=== PATIENT | male | born 1985 | race Caucasian/White ===

== ENCOUNTER → 2023-06-08 19:02 | Outpatient (CLI) | payer OTHER, SELFPAY ==
--- NOTE | 2023-06-08 19:04 | DI.MRI.S_ITS ---
PROCEDURE: MR CERVICAL SPINE WO CON INDICATIONS: Cervicalgia TECHNIQUE: Noncontrast sagittal T1 spin echo and T2 fast spin echo, sagittal STIR, foraminal oblique sagittal T2 fast spin echo, and axial gradient echo or T2 fast spin echo through the cervical spine. COMPARISON: None. FINDINGS: Image quality: Excellent. Alignment and Curvature: There is normal bony alignment. Bone Marrow: Marrow demonstrates normal overall signal. Spinal Cord: Visualized spinal cord has normal size and signal. No cerebellar tonsillar herniation. Paraspinous Soft Tissues: No paravertebral masses. Prevertebral soft tissues are normal in thickness. C2-C3: Normal appearance. C3-C4: Disc bulge. Bilateral uncovertebral joint hypertrophy. Bilateral moderate to severe foraminal narrowing with a degree of bilateral C4 nerve root impingement. C4-C5: Prominent left facet hypertrophy. Disc bulge. No canal stenosis. Mild bilateral uncovertebral joint hypertrophy. Moderate to severe bilateral foraminal narrowing with a degree of bilateral foraminal C5 nerve root impingement. C5-C6: Diffuse posterior disc plus osteophyte. AP diameter of the canal is 11.3 mm. There is bilateral uncovertebral joint hypertrophy. There is severe bilateral foraminal narrowing with a degree of bilateral foraminal C6 nerve root impingement. C6-C7: There is a mild central posterior disc extrusion which indents on the ventral cord narrowing the AP diameter of the canal to 8.8 mm. There is an associated extruded free disc fragment, which is high signal, indicating acuity, obliterating the right C7 nerve root in the right lateral recess, measuring 1.0 x 0.9 x 0.6 cm. There is [id number] right foraminal narrowing. There is left uncovertebral joint hypertrophy with mild to moderate left foraminal narrowing. C7-T1: Normal appearance. IMPRESSION: 1. The most significant findings are at C6-C7. There is central posterior disc extrusion indenting on the ventral cord resulting in moderate canal stenosis. There is an associated large acute free extruded disc fragment in the right lateral recess obliterating the right C7 nerve root. 2. Diffuse spondylitic change with multilevel significant foraminal narrowing. Findings include bilateral moderate to severe foraminal narrowing at C3-C4 and C4-C5. There is severe bilateral foraminal narrowing at C5-C6. There is bilateral foraminal nerve root impingement at these levels. Dictated by: Renny Marques M.D. on 06/11/2023 at 8:08 Approved by: Renny Marques M.D. on 06/11/2023 at 8:16
== END ==
DX: M50.223 Other cervical disc displacement at C6-C7 level (principal); M48.02 Spinal stenosis, cervical region
CPT/HCPCS: 72141

== ENCOUNTER → 2023-08-23 07:16 | Outpatient (CLI) | payer OTHER, SELFPAY ==
--- NOTE | 2023-08-23 | DI.MRI.S_ITS ---
PROCEDURE: MR CERVICAL SPINE WO CON INDICATIONS: Other spondylosis with radiculopathy, cervical reg TECHNIQUE: Noncontrast sagittal T1 spin echo and T2 fast spin echo, sagittal STIR, foraminal oblique sagittal T2 fast spin echo, and axial gradient echo or T2 fast spin echo through the cervical spine. COMPARISON: [facility], MR, MR CERVICAL SPINE WO CON, 06/08/2023, 19:29. FINDINGS: Image quality: Excellent. Alignment and Curvature: Straightening of the normal cervical lordosis. Bone Marrow: Marrow demonstrates normal overall signal. Spinal Cord: Visualized spinal cord has normal size and signal. No cerebellar tonsillar herniation. Paraspinous Soft Tissues: No paravertebral masses. Prevertebral soft tissues are normal in thickness. C2-C3: Normal appearance. C3-C4: Disc desiccation and posterior disc osteophyte complex. No central canal stenosis. Facet and uncovertebral arthropathy. Moderate to severe bilateral neural foraminal stenosis. C4-C5: Disc desiccation. No central canal stenosis. Facet and uncovertebral arthropathy. Stable moderate to severe bilateral neural foraminal stenosis. C5-C6: Disc desiccation. No central canal stenosis. Uncovertebral and facet arthropathy. Stable severe bilateral neural foraminal stenosis. C6-C7: Disc desiccation. Posterior disc osteophyte complex and right paracentral disc extrusion indenting the right ventral cord and extending into the right neural foramina compressing the right C7 nerve root in the lateral recess. Moderate central canal stenosis. Mild to moderate bilateral neural foraminal stenosis. C7-T1: Normal appearance. IMPRESSION: 1. Degenerative changes of the cervical spine are stable compared to prior, most pronounced at C6-C7. Right paracentral disc extrusion at this level resulting in moderate central canal stenosis and impingement of the exiting right C7 nerve root. 2. Multilevel neural foraminal narrowing, severe bilaterally at C5-C6 and moderate to severe bilaterally at C3-C4 and C4-C5. Dictated by: Mark Bacon M.D. on 08/23/2023 at 9:57 Approved by: Mark Bacon M.D. on 08/23/2023 at 10:04
== END ==
PROVIDERS: Referring Provider Neurological Surgery; Visit Provider Neurological Surgery
DX: M47.22 Other spondylosis with radiculopathy, cervical region (principal); M50.123 Cervical disc disorder at C6-C7 level with radiculopathy; M48.02 Spinal stenosis, cervical region
CPT/HCPCS: 72141